=== PATIENT | male | born 1950 | race Caucasian/White ===

== ENCOUNTER 2020-02-17 05:41 | Day surgery (SDC) | payer MEDICARE ==
[2020-02-17] MEDS ORDERED: LACTATED RINGERS 1,000 ML ONE (06:46)
[2020-02-17] MEDS ORDERED: diphenhydrAMINE HCL 50 MG/ML VIAL ONE (07:00)
[2020-02-17] MEDS ORDERED: DEXAMETHASONE INJ 10 MG/ML VIAL ONE (07:00)
[2020-02-17] MEDS ORDERED: LIDOCAINE 1% 10 ML VIAL INJ ONE (07:00)
[2020-02-17] MEDS ORDERED: MAGNESIUM SULFATE INJ 1 GM/2 ML VIAL ONE (07:00)
[2020-02-17] MEDS ORDERED: PROPOFOL 200 MG/20 ML VIAL IV ONE (07:00)
[2020-02-17] MEDS ORDERED: BUPIVACAINE 0.5% W/EPI 30 ML VIAL INJ ONE ×2 (10:20→10:46)
[2020-02-17] MEDS ORDERED: SODIUM CHLORIDE 0.9% 1000ML 1,000 ML ONE (10:23)
[2020-02-17] MEDS ORDERED: LACTATED RINGERS 1,000 ML IVS ONE (10:50)
[2020-02-17] MEDS ORDERED: SUGAMMADEX SODIUM 200 MG/2 ML VIAL IV ONE (11:00)
[2020-02-17] MEDS ORDERED: KETAMINE HCL 100 MG/ML VIAL ONE (11:01)
[2020-02-17] MEDS ORDERED: fentaNYL CITRATE INJ 50 MCG/ML 2 ML AMP ONE (11:01)
[2020-02-17] MEDS ORDERED: MIDAZOLAM INJ 2 MG/2 ML VIAL ONE (11:01)
[2020-02-17] MEDS ORDERED: ROCURONIUM BROMIDE 10 MG/ML VIAL ONE (11:01)
[2020-02-17] MEDS ORDERED: HYDROmorphone HCL INJ 2 MG/ML VIAL ONE (11:45)
--- NOTE | 2020-02-17 13:09 | OP ---
DATE OF PROCEDURE: 02/17/20 PREOPERATIVE DIAGNOSIS: 1. Symptomatic cholelithiasis. POSTOPERATIVE DIAGNOSIS: 1. Symptomatic cholelithiasis. PROCEDURE: 1. Laparoscopic cholecystectomy. SURGEON: Paul Gabriel MD. ANESTHESIA: General and local. FINDINGS: He had extremely thick bile like blood clots with multiple small stones. Anatomy was clearly visualized through the triangle of Calot. COMPLICATIONS: None. ESTIMATED BLOOD LOSS: Minimal. SPECIMEN: Gallbladder. CONDITION: Stable. PLAN: Discharge. INDICATION: As stated. PROCEDURE: General anesthesia was induced. The patient was prepped and draped in sterile fashion. Marcaine 0.5% with epinephrine was used at all incision sites. While maintaining upward traction, a maira was made near the base of the umbilicus. Veress needle was introduced. There was free flow of fluid into the peritoneal cavity which was insufflated to an appropriate level with CO2 gas. The 5 mm trocar was placed followed by the camera. There was no evidence of bleeding or bowel injury. The patient was positioned and subxiphoid and lateral ports were placed under direct visualization without difficulty. The gallbladder fundus was easily identified. It was grasped and retracted superiorly and laterally. There were multiple anterior adhesions that were taken down until the infundibulum was identified. The infundibular structures were dissected free. The duct and artery were clearly visualized through the triangle of Calot. The duct was triply ligated as was the artery. The gallbladder was then dissected off the fossa in toto and removed in the EndoCatch bag. The fossa was examined. It remained hemostatic. The clips were intact. There was no bleeding or bile leakage. The subxiphoid fascia was then closed with 0 Vicryl using the suture passer. It was airtight and non-bleeding. The remaining trocars were removed. There was no bleeding from the trocar sites. The abdomen was desufflated. The wounds were irrigated and closed with 4-0 Monocryl. Dressings were applied. The patient was awakened and taken to Recovery to be discharged. #[id number] cc: Dr. Luis Miguel DWYER
[2020-02-17 14:02] VITALS: BP 158/84; TEMP 96.7; O2SAT 98
== END 2020-02-17 14:00 | disposition home or self-care (01) ==
LOC: AMB 05:41
PROVIDERS: ATTEND Surgery
DX: K80.10 Calculus of gallbladder with chronic cholecystitis without obstruction (principal); D13.5 Benign neoplasm of extrahepatic bile ducts; I48.91 Unspecified atrial fibrillation; E78.00 Pure hypercholesterolemia, unspecified; E03.9 Hypothyroidism, unspecified; E66.9 Obesity, unspecified; F17.200 Nicotine dependence, unspecified, uncomplicated; Z79.01 Long term (current) use of anticoagulants; Z79.899 Other long term (current) drug therapy; Z87.891 Personal history of nicotine dependence
CPT/HCPCS: 00790; 36415; 47562; 80053; 85025; 88304; 93005; J1100; J1170; J1200; J2250; J3010; J3475; J3490; J7030; J7120